=== PATIENT | male | born 2000 | race Caucasian/White ===

== ENCOUNTER 2019-05-11 20:00 | Emergency (ER) | payer OTHER ==
[~2019-05-11] VITALS: Ht 172.7 cm; Wt 77.1 kg
[2019-05-11] MEDS ORDERED: [UNRECOGNIZED DRUG - OTHER] (20:07)
[2019-05-11] MEDS ORDERED: CLONAZEPAM1 M1 (20:07)
[2019-05-11] MEDS ORDERED: ZOLOFT100 MG (20:07)
[2019-05-11] MEDS ORDERED: SILVADENE20 GM TOP (22:09)
== END 2019-05-11 22:25 | disposition home or self-care (01) ==
LOC: ER 20:00
DX: T21.11XA Burn of first degree of chest wall, initial encounter (principal); X19.XXXA Contact with other heat and hot substances, initial encounter; Y93.89 Activity, other specified; Y92.89 Other specified places as the place of occurrence of the external cause; Y99.8 Other external cause status